=== PATIENT | female | born 1985 | race Caucasian/White ===

== ENCOUNTER 2022-01-07 08:37 | Emergency (ER) | payer OTHER ==
[~2022-01-07] VITALS: Ht 157.5 cm; Wt 68.1 kg
--- NOTE | 2022-01-07 08:54 | NUR ---
BIBFAMILY MEMBER FOR FEVER X2 DAYS. HAS BEEN TAKING TYLENOL ROUTINELY. IN ROOM AIR AND DENIES SOB. RESPIRATION REGULAR AND UNLABORED. WILL CONTINUE TO MONITOR THE PATIENT.
[2022-01-07] MEDS ORDERED: KETOROLAC TROMETHAMINE INJ 30 MG/ML VIAL IV ONE (10:00)
[2022-01-07] MEDS ORDERED: IV NS 0.9% 1,000 ML IV ONE (10:00)
--- NOTE | 2022-01-07 10:00 | NUR ---
NOVEL NELSON AND INFLUENZA SWAB DONE AND SENT TO LAB
[2022-01-07] MEDS ORDERED: KETOROLAC TROMETHAMINE 15 MG/ML VIAL ONE (10:25)
[2022-01-07] MEDS ORDERED: IBUP-1955 PO (10:50)
--- NOTE | 2022-01-07 12:48 | NUR ---
IV CANNULA REMOVED
[2022-01-07 12:49] VITALS: BP 118/64
--- NOTE | 2022-01-07 12:49 | NUR ---
Patient discharged to home in stable condition. Written and verbal after care instructions given. Patient verbalizes understanding of instruction.
== END 2022-01-07 12:50 | disposition home or self-care (01) ==
LOC: ER 08:42
DX: B34.9 Viral infection, unspecified (principal); Z20.822 Contact with and (suspected) exposure to COVID-19; Z86.16 Personal history of COVID-19
CPT/HCPCS: 87804; 96361; 96374; 99284; C9803; J1885; J7030; U0003